=== PATIENT | male | born 1975 | race Caucasian/White ===

== ENCOUNTER 2021-04-29 09:30 | Outpatient (CLI) | payer BC, SELFPAY ==
[2021-04-29 10:26] LABS: Alanine Aminotransferase 49 U/L (16-63); Albumin Level 4.1 g/dL (3.4-5.0); Alkaline Phosphatase 74 U/L (46-116); Anion Gap 9 mmol/L (8-16); Aspartate Amino Transferase 24 U/L (15-37); Bilirubin,Total 0.8 mg/dL (0.00-1.00); Blood Urea Nitrogen 21 mg/dL (7-18); Calcium 9.1 mg/dL (8.5-10.1); Carbon Dioxide 29 mmol/L (21-32); Chloride 101 mmol/L (98-108); Cholesterol 170 mg/dL (0-200); Creatine Kinase 302 U/L (39-308); Estimated Glomerular Filt Rate > 60; Glucose 97 mg/dL (70-99); HDL Direct 41 mg/dL (40-60); LDL Cholesterol Calculated 104 mg/dL (<130); Osmolality Calculated 291 mOsm/kg (285-295); Potassium 4.1 mmol/L (3.5-5.1); Sodium 139 mmol/L (136-145); Total Protein 7.5 g/dL (6.4-8.2); Triglycerides 125 mg/dL (0-150)
[2021-05-06 03:53] LABS: Aldolase 5.4 U/L (<=8.1)
== END 2021-04-29 09:31 | disposition home or self-care (01) ==
LOC: CHSLAB 09:34
PROVIDERS: PCP Internal Medicine; Visit Provider Internal Medicine
DX: K76.0 Fatty (change of) liver, not elsewhere classified (principal); M60.9 Myositis, unspecified; E78.2 Mixed hyperlipidemia; I10 Essential (primary) hypertension
CPT/HCPCS: 36415; 80053; 80061; 82085; 82550

== ENCOUNTER 2021-08-12 07:10 | Outpatient (CLI) | payer BC, SELFPAY ==
--- NOTE | ~2021-08-12 | MR_ITS ---
EXAMINATION: MR lower leg LT wo con DATE: 08/12/2021 08:28 INDICATION: Left calf also tear presenting with left calf pain 10 days post running injury. TECHNIQUE: Magnetic resonance imaging (MRI) of the lower leg was performed without intravenous contra st. Sequences included axial, sagittal and coronal T1-weighted FSE and fluid sensitive FSE STIR. The contralateral right lower leg is included on the lateral images. COMPARISON: Left knee MRI dated 11/12/2015 FINDINGS: Bone alignment is normal. Bone marrow signal is normal with no reactive edema, fracture or pathologic marrow replacing process. No left knee or ankle joint effusions. Evaluation of the cartilage, menisc i and stabilizing ligaments at the knee as well as the cartilage at the right ankle is limited by the large field of view of imaging on the sagittal coronal images with the knee and ankle joints both lo cated at the margins of the field of imaging. There is a partial tear of the extending across midport ion of the proximal aspect of the Achilles tendon centered approximately 12 cm proximal to the tibiot alar joint line with approximately 2.5 cm separation of the tear margins. There is a sagittally orien zee split tear as well as a thin plane of fluid extending medially and laterally along the deep pablo n of the intramuscular portion of the tendon extending 20 cm proximally. The portion of the tendon wh ich is torn and retracted distally contributes to approximately half of the medial head of the gastro cnemius muscle belly. The components of the Achilles tendon arising from the lateral head of the jessica rocnemius muscle and the soleus muscle remain intact. IMPRESSION: 1. Moderate grade strain with partial tear of the distal tendon and myotendinous junction of the medi al head of the gastrocnemius muscle and extends 20 cm proximal to distal and involves approximately o ne half of the tendon contribution of the medial head of the gastrocnemius. Reviewed, dictated and finalized at location A. IMPRESSION: 1. Moderate grade strain with partial tear of the distal tendon and myotendinou s junction of the medial head of the gastrocnemius muscle and extends 20 cm pro ximal to distal and involves approximately one half of the tendon contribution of the medial head of the gastrocnemius.
== END 2021-08-12 07:11 | disposition home or self-care (01) ==
LOC: CHSIMG 07:11
PROVIDERS: PCP Internal Medicine; Visit Provider Internal Medicine
DX: S86.812A Strain of other muscle(s) and tendon(s) at lower leg level, left leg, initial encounter (principal)
CPT/HCPCS: 73718

== ENCOUNTER 2022-01-01 06:56 | Outpatient (CLI) | payer BC, SELFPAY ==
--- NOTE | ~2022-01-01 | CT_ITS ---
EXAMINATION: CT abdomen pelvis w con DATE: 01/01/2022 07:41 INDICATION: Low anterior pelvic pain radiating to testicles TECHNIQUE: Computed tomography (CT) of the abdomen and pelvis was performed with 100 cc Omnipaque 350 intravenous contrast. Automated exposure control and iterative reconstruction technique were employe d. Exam dose: 618.19 mGy-cm total exam DLP. COMPARISON: None. FINDINGS: 3 mm nodule in the lateral left lung base, left lower lobe, likely a small calcified pulmon dorothy granuloma but too small to definitively characterize. The lung bases are clear of infiltrate or consolidation. Normal heart size. No pericardial or pleural effusion. The liver, gallbladder, bile ducts, pancreas, pancreatic duct, spleen, adrenal glands and kidneys are unremarkable. Normal caliber of the abdominal aorta. No intraperitoneal or retroperitoneal or pelvic mass lesion or adenopathy or ascites. The urinary bladder is unremarkable. Prostate calcifications. Small bilateral fat-containing inguinal hernias, larger on the right. Moderately severe degenerative disc disease and mild retrolisthesis at L5-S1. Prominent degenerative change at the facet joints particularly at L4-5 and L5-S1. Additional degenerative changes of lumbar and lower thoracic spine. No suspicious osteolytic or osteoblastic lesions. IMPRESSION: Small bilateral fat-containing inguinal hernias, larger on right Moderately severe degenerative disc disease and mild retrolisthesis at L5-S1 Prominent degenerative change at the L4-5 and L5-S1 apophyseal joints Reviewed, dictated and finalized at Location A. Reviewed, dictated and finalized at location B. K SAW OPERATOR
--- NOTE | ~2022-01-01 | XR_ITS ---
XR lumbar spine 2-3V DATE: 01/01/2022 10:40 INDICATION: Chronic low back pain TECHNIQUE: AP, lateral, coned lateral lumbosacral views COMPARISON: None FINDINGS: The lumbar vertebrae are normally aligned. No fracture or bone destruction. The lumbar pedi cles are intact. There is degenerative change at the apophyseal joints particularly at L4-5 and L5-S1 with associated grade 1 anterolisthesis at L4-5. There is mild loss of interspace height at L1-2 and L4-5. Moderately prominent degenerative disease at L5-S1. Possible primary lumbar spinal stenosis is suggested. The sacroiliac joints are intact. Bilateral intravenous contrast material excretion from 01/01/2022 CT abdomen and pelvis examination by the kidneys, without hydronephrosis. IMPRESSION: Multilevel degenerative disc disease, most prominent at L5-S1 Degenerative change at the apophyseal joints with associated grade 1 anterolisthesis at L4-5 Possible primary lumbar spinal stenosis; this would be better evaluated by CT examination. Reviewed, dictated and finalized at location B. ION AGENT IMPRESSION: Multilevel degenerative disc disease, most prominent at L5-S1 Degenerative change at the apophyseal joints with associated grade 1 anterolist hesis at L4-5 Possible primary lumbar spinal stenosis; this would be better evaluated by CT e xamination.
[2022-01-01 07:18] LABS: Estimated Glomerular Filt Rate > 60
== END 2022-01-01 06:57 | disposition home or self-care (01) ==
PROVIDERS: PCP Internal Medicine; Visit Provider Internal Medicine
DX: M54.50 Low back pain, unspecified (principal); R10.9 Unspecified abdominal pain; K46.9 Unspecified abdominal hernia without obstruction or gangrene
CPT/HCPCS: 72100; 74177; Q9967

== ENCOUNTER 2022-01-04 13:52 | Outpatient (RCR) | payer BC, SELFPAY ==
--- NOTE | 2022-01-04 14:42 | PTOPEVAL ---
Thank you for referring Power Fierro to [facility].? The patient is scheduled to be seen for therapy? __2__x/week for 8 visits. Please review, sign, date and return this plan of care DEANDRE. I agree with and certify that the following plan of care is medically necessary. Referring Physician Date Admitting Provider: Attending Provider: Merry Bell MD Referring Provider: *PT Outpatient Evaluation Start: 01/04/22 13:57 Freq: Status: Active Protocol: Document 01/04/22 13:57 ALEK (Rec: 01/04/22 14:41 ALEK [id number]) Therapy Assessment Status Assessment Status Assessment Status Evaluation Evaluation Information Problem Diagnosis low back pain Onset 01/01/22 Subjective Information Pt. reports that he has had on Query Text:As Reported By Patient/ /off back pain for years. He Family reports around 2019 he was doing some housework and noticed an increase in pain. He reports that he developed testicular pain, which was a hernia. He reports that his pain in the back is located across the low back and will get occassional tingling into the left leg. He reports that pain and tingling will wake him at night frequently. He reports that his job requires him to sit most of the day. 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 He reports his goal is to reduce his low back pain. Pain Assessment Timing of Pain Assessment Timing of Pain Assessment Pre-Treatment Pain Scale Pain Scale Used Numeric (1 - 10) Self Report Pain Assessment Lower Back Reported Pain Level 1 Pain Description Aching Pain Radiation Left Leg Lowest Pain Intensity 1 Greatest Pain Intensity 7 Pain Aggravating Factors Bending,Exercise/Activity, Lifting,Weight Bearing/ Standing Pain Score Pain Score 1: Self Report Interventions Used Interventions Used By Clinicians Electrical Stimulation, Exercise,Heat Cervical and Lumbar ROM Lumbar ROM Lumbar Flexion Active Ankle Query Text:Hands to: Lumbar Extension (0-40) 10
--- NOTE | 2022-01-29 07:57 | PTOPEVAL ---
Thank you for referring Power Fierro to [facility].? The patient is scheduled to be seen for therapy? ____x/week for ___ weeks. Please review, sign, date and return this plan of care DEANDRE. I agree with and certify that the following plan of care is medically necessary. Referring Physician Date Admitting Provider: Attending Provider: Merry Bell MD Referring Provider: *PT Outpatient Evaluation Start: 01/04/22 13:57 Freq: Status: Active Protocol: Document 01/29/22 07:00 Vivian (Rec: 01/29/22 07:56 [facility] [id number]) Therapy Assessment Status Assessment Status Assessment Status Discharge Evaluation Information Problem Diagnosis low back pain Onset 01/01/22 Additional Evaluation Detail oswestry = 12% functionally declined Subjective Information patient reports he feels good Query Text:As Reported By Patient/ this date. he reports no Family pain in the lower back. he reports he has been back in the gym doing aerobics and other workouts. he reports he diid pull his hamstring a bit on the L side last night at the gym. Pain Assessment Timing of Pain Assessment Timing of Pain Assessment Assessment Self Report Self Report Pain Level 0 Pain Score Pain Score 0: Self Report Cervical and Lumbar ROM Lumbar ROM Lumbar Flexion Active Ankle Query Text:Hands to: Lumbar Extension (0-40) 20 Query Text:Active in Degrees Lumbar Lateral Flexion Right (0-40) 30 Query Text:Active in Degrees Lumbar Lateral Flexion Left (0-40) 30 Query Text:Active in Degrees Lower Extremity Muscle Strength Testing General Lower Extremity Strength Gross Lower Extremity Strength -bilateral hip flexion 5/5 -bilateral hip extension 5/5 -bilateral hip abduction 5/5 -bilateral knee flexion 5/5 -bilateral knee extension 5/5 -bilateral ankle dorsiflexion 5/5 Muscle Length Testing Muscle Length Testing Left Hamstring Length 20 Query Text:(90 - 90 Position) Right Hamstring Length 25 Query Text:(90 - 90 Position) Gait Assessment Gait Pattern Assessment Gait Pattern No Deviations/Normal General Exercise General Exercises Exercise Description Ther ex Query Text:Record Sets, Reps, -passive stretching of the HS Resistance, and Position x 2.5 minutes bilateral
== END 2022-01-29 09:46 | disposition home or self-care (01) ==
LOC: CHSPT 13:52
PROVIDERS: PCP Internal Medicine; Visit Provider Internal Medicine
DX: M54.50 Low back pain, unspecified (principal)
CPT/HCPCS: 97012; 97014; 97110; 97112; 97161; G0283

== ENCOUNTER 2022-03-04 08:36 | Outpatient (CLI) | payer BC, SELFPAY ==
--- NOTE | 2022-03-04 08:43 | ECG_ITS ---
Measurements Intervals [place] Rate: 71 P: 37 VA: 141 QRS: 26 QRSD: 89 T: -31 QT: 379 QTc: 412 Interpretive Statements SINUS RHYTHM BORDERLINE ECG NONSPECIFIC T-WAVE ABNORMALITY NO PREVIOUS ECG AVAILABLE FOR COMPARISON Electronically Signed On 03-04-2022 16:49:36 CDT by Wenceslao Gomes M.D.
== END 2022-03-04 08:37 | disposition home or self-care (01) ==
LOC: ANHSURGERY 08:40
PROVIDERS: PCP Internal Medicine; Visit Provider Surgery
DX: Z01.818 Encounter for other preprocedural examination (principal); K40.20 Bilateral inguinal hernia, without obstruction or gangrene, not specified as recurrent; I10 Essential (primary) hypertension
CPT/HCPCS: 36415; 86850; 86900; 86901; 93005

== ENCOUNTER 2022-03-09 00:22 | Day surgery (SDC) | payer BC, SELFPAY ==
[2022-03-03 13:13] VITALS: BMI 29.9
--- NOTE | 2022-03-03 13:20 | PC.NURSE ---
Report to the Outpatient Waiting Room, entrance under the green pavilion located off [facility], at time ___729____ on date 03/09/22 . OR Time: . - You and your visitor will be asked a series of questions to screen for COVID 19 for your protection. - A mask is required within the hospital. Preoperative COVID Testing Requirements: No COVID Test needed if: (proof is required; if not received patient will have Rapid Test prior to entry) - Patient has received COVID Vaccine at least 14 days prior to procedure date or - Patient has positive COVID test result within last 90 days of surgery date. COVID Test needed if above criteria is not met If not COVID vaccinated a COVID test must be conducted within 72 hours of surgery and patient is asked to isolate self from time of testing until procedure. You will go to the [facility] for your COVID testing. The [facility] site is located at the corner of [address] [facility]. You will only be called if COVID results are positive and your surgeon may reschedule your elective surgery date. Patients may have clear liquids (water, carbonated beverages, clear teas, apple juice) until 3 hours prior to surgery with a maximum of 20 ounces. - No food from midnight until time of surgery - Infants may have breast milk until 4 hours before surgery, infant formula 6 hours prior to surgery. - Children will be allowed to drink immediately following surgery. If applicable, please bring a bottle or sippy cup to assist with drinking. Juice, water, soda, and popsicles are readily available. For infants on formula, please bring formula the day of surgery. Pacifiers are allowed. Take the following medications with a SIP of water the morning of surgery: __AMLODIPNE Medications to discontinue per physician NONE Date to take last dose N/A Please no make-up, nail japanese, hairspray, perfume, deodorant, or body powder the day of surgery. No jewelry (including any body piercings) or valuables the day of surgery, leave them at home. Please take a shower or bath the night before, or the morning of, surgery with an antibacterial soap. Wear comfortable, loose fitting clothing. Children are encouraged to wear pajamas. - Jewelry must be removed prior to entering the operating room. Rings and piercings that are not removed may be cut off. - The hospital will not accept responsibility for valuables. - Please leave all valuables, including medications, at home the day of surgery. If you are going home after surgery, a licensed cdl flatbed truck driver must drive you home. - NO public transportation without another adult. - We recommend that an adult stay with you for 24 hours following discharge. - We also recommend that you do not drive, make important decision, drink alcoholic beverages, or take any drugs that were not prescribed by your health care provider for at least 24 hours after your discharge time. For Pediatric surgeries, we recommend two adults accompany the child home (only one inside the building at this time). One visitor will be allowed to accompany the patient into the hospital. Patients visitor will be instructed to remain with patient at all times or leave the building. We will allow the visitor to come back to the postoperative area when patient is ready. Follow any additional instructions given to you from your surgeon. Telephone instructions given to PATIENT___and asked if any additional questions and then verbalized understanding. Patient advised to call surgeon office or pre surgery nurse liaison [phone] if any additional questions.
[2022-03-09] VITALS (9 sets, daily range): BP systolic 97–130; BP diastolic 60–86; PULSE 68–81; RESP 12–20; TEMP 36.7; O2SAT 92–100
--- NOTE | 2022-03-09 07:32 | WPDANESEPPF ---
Anes - Initial Pre Proc Eval Procedure: Operation Date: 03/09/22 09:30 Proposed Procedures p Laparoscopic Bilateral Inguinal Hernia Repair with Mesh Davinci Assisted - Power Funk DO Date/Time: 03/09/22 07:32 Surgeon: Power Funk DO Pre Op Diagnosis: bilateral inguinal hernia Patient Data Age: 46 Gender: M Height: 1.83 m Weight: 100 kg Allergies Allergy/AdvReac Type Severity Reaction Status Date / Time No Known Allergies Allergy Verified 03/09/22 08:27 Home Medications Medication Instructions Recorded Confirmed Type amlodipine 10 mg tablet 10 mg PO DAILY 01/12/22 03/03/22 History Patient hx anesthesia problems: none Family hx anesthesia problems: none Results Review: All pre-operative results and documents have been reviewed as part of the pre-operative evaluation. [facility] Past Medical History Medical History High cholesterol Hypertension Surgical History Surgical History History of appendectomy Family History Family History Unknown Diabetes mellitus Hypertension Social History Social History Smoking status: Never smoker Tobacco type: pipe and cigars Alcohol intake: current Drinks per week: 2 Substance use: never Living arrangements: with family Anes - Eval Final PreProcedure Day of Procedure 03/09/22 07:32 Patient weight: overweight Heart: regular rate and rhythm Lungs: clear to auscultation and normal air movement Airway: Mallampati scale class III Neurological: alert and oriented Last oral intake: >/= 8 hours ASA classification: II Emergent: no Anesthetic plan: proceed Anesthesia type and monitoring: general ETT and standard monitoring Results Review: All pre-operative results and documents have been reviewed as part of the pre-operative evaluation. Informed Consent: The patient's anesthetic plan and its attendant risks and benefits were discussed with the patient/family/POA. Questions were solicited and answers provided to the satisfaction of the patient/family/POA.
[2022-03-09] MEDS: LACTATED RINGERS 1,000 ML 30 ML IV CONT ×2 (08:01→10:54)
[2022-03-09] MEDS: ACETAMINOPHEN 500 MG TABLET 1000 MG PO (08:01)
[2022-03-09] MEDS: KETOROLAC 15 MG/ML VIAL (*BKC) IV PUSH (08:01)
--- NOTE | 2022-03-09 08:43 | PM.IMHP ---
H&P: HPI History of Present Illness Date/Time: 03/09/22 08:43 Chief Complaint: Bilateral inguinal hernia Narrative: This is a 46-year-old man who presents with bilateral inguinal hernias. He was noticing some increasing pain in the right testicle and a CT showed evidence of bilateral inguinal hernias, right larger than left. He reports no changes since last seen in the office. Review of Systems Review of Systems: All systems reviewed & are unremarkable except as noted in HPI and below Constitutional: Constitutional: Denies chills, Denies fever(s), Denies headache(s) and Denies weight loss Eyes: Eyes: Denies change in vision ENT: Denies dizziness, Denies headache(s), Denies neck mass and Denies throat swelling Cardiovascular: Cardiovascular: Denies chest pain, Denies lightheadedness and Denies dyspnea Respiratory: Respiratory: Denies cough, Denies dyspnea and Denies wheezing Gastrointestinal: Gastrointestinal: Denies abdominal pain, Denies change in bowel habits, Denies nausea and Denies vomiting Genitourinary: Genitourinary: Denies hematuria and Denies dysuria Musculoskeletal: Musculoskeletal: Reports as per HPI Integumentary/Breasts: Skin/Breast: Reports as per HPI Neurologic: Denies dizziness and Denies headache(s) Allergic/Immunologic: Allergic/Immunologic: Denies throat swelling and Denies wheezing PMFSH Past Medical History Medical History High cholesterol Hypertension Surgical History Surgical History History of appendectomy Family History Family History Unknown Diabetes mellitus Hypertension Social History Social History Smoking status: Never smoker Tobacco type: pipe and cigars Alcohol intake: current Drinks per week: 2 Substance use: never Living arrangements: with family Meds Home Medications and Allergies Home Medications Medication Instructions Recorded Confirmed Type amlodipine 10 mg tablet 10 mg PO DAILY 01/12/22 03/09/22 History Allergies Allergy/AdvReac Type Severity Reaction Status Date / Time No Known Allergies Allergy Verified 03/09/22 08:27 Vital Signs Vital Signs - 24 hr 03/09/22 08:28 Temperature 36.7 C Pulse Rate 74 Respiratory Rate 18 Blood Pressure 130/86 Pulse Oximetry 100 Exam Const: General: no acute distress and alert Orientation/consciousness: patient oriented x3 HENMT: Head: normocephalic and atraumatic Ears: hearing grossly normal bilaterally General nose exam: Normal nares present Mouth: Yes Normal oral and palatal mucosa present Eyes: Periorbital: periorbital findings normal Sclera: sclerae normal EOM: EOMs intact bilaterally Neck: Neck: normal visual inspection, no lymphadenopathy and trachea midline Chest: Chest palpation & inspection: normal inspection of the chest Resp: Effort & Inspection: normal respiratory effort Auscultation: clear to auscultation bilaterally Cardio: Jugular venous distension: no JVD Rate: regular rate Rhythm: regular rhythm Heart sounds: S1 normal heart sound present and S2 normal heart sound present Peripheral pulses: Peripheral pulses 2+ throughout GI: Inspection: normal to inspection GI Palp: Yes Soft to palpation, No Tenderness to palpation present (GI), No Guarding due to palpation present (GI) and No Rebound tenderness present Percussion: Yes normal to percussion Auscultation: normal bowel sounds : General: Yes no CVA tenderness Scrotum: inguinal hernia bilateral Back/Spine/Pelvis: Back: no CVA tenderness Neuro: General: patient oriented x3, no focal motor deficits and CN's II-XI intact bilaterally Cognition (Neuro): normal cognition Speech: normal speech Motor exam (neuro): 5/5 motor strength present throughout Extrem: General: capillary r
--- NOTE | 2022-03-09 08:46 | WPDHPUPDATE1 ---
History and Physical Update Update Date/Time: 03/09/22 08:46 History and Physical has been reviewed, including an updated exam of the patient. There are NO changes in the patient's condition. Risks, benefits, and alternatives have been discussed and questions answered. Patient agrees to proceed with procedure.
[2022-03-09] MEDS: ceFAZolin 2 GM/D5W 50 ML 2 GM/50 ML BAG IVPB (09:16)
--- NOTE | 2022-03-09 10:48 | W.PM.PROC2 ---
Procedure Note - Detailed Date of Procedure 03/09/22 Pre-op Diagnosis bilateral inguinal hernia Post-op Diagnosis Same (Right indirect inguinal hernia, left direct inguinal hernia) Procedure Performed Laparoscopic [] inguinal hernia repair with mesh, da Lupe assisted Surgeon Power Funk, DO Anesthesia General and Local (0.5% bupivacaine with epinephrine) Indications This is a 46-year-old man who presented with groin pain over the past 2 months. The pain was radiating down to his right testicle. A CT of his abdomen and pelvis was done in December and this showed evidence of bilateral fat containing inguinal hernias. Discussions were made with the patient about treatment options and decision was made to proceed with robotic assisted laparoscopic bilateral inguinal hernia repair with mesh. Findings Laparoscopic bilateral inguinal hernia repair was performed. Patient was found have a small indirect right inguinal hernia and a small direct left inguinal hernia. The patient also had a lymph node noted on the left side right near the inguinal canal. This lymph node was excised and sent to the lab for pathology. A robotic assisted transabdominal preperitoneal approach was utilized. Large Bard 3DMax mid mesh was placed on each side overlying the entire myopectineal orifice. No other abnormalities were noted. Description of Procedure Procedure as well as risks, benefits, and alternatives were discussed with the patient. Written consent was obtained and placed in chart prior to procedure. Patient was brought back to surgical suite. He was placed supine on operating table. Time-out was done to confirm patient and procedure. He was then intubated by Anesthesia Department. His abdomen was prepped and draped in sterile fashion using chlorhexidine prep. 0.5% bupivacaine with epinephrine was infiltrated at each location for incision. An 8 mm incision was made in the left lateral abdomen, and a 5 mm Optiview trocar was advanced through the abdominal layers under direct visualization. Once inside the abdominal cavity, carbon dioxide insufflation was used to create a pneumoperitoneum. A camera was inserted and the abdominal cavity was inspected. The patient was placed in slight Trendelenburg position. An 8 millimeter incision was made on the right lateral abdomen and an 8 millimeter trocar was inserted under direct visualization. Another 8 millimeter incision was made just superior to the umbilicus and an 8 millimeter trocar was inserted under direct visualization. The 5 mm port was then removed and this was replaced with another 8 mm robotic port. The robotic arms were brought up to the patient's bedside and secured to the ports. The camera and instruments were inserted. I then moved over to the robotic console and took control of the camera and instruments. After careful inspection of the abdominal cavity, I began scoring the peritoneum along the right lower quadrant using scissors with electrocautery. The preperitoneal plane was entered and this was carefully dissected caudally along the inferior epigastric vessels. Careful dissection with scissors with electrocautery and blunt dissection was used to continue this dissection. I dissected far enough laterally to allow for mesh placement, and also dissected medially to identify the pubic arch and Salvador's ligament. The hernia sac was identified and carefully dissected posteriorly. The cord contents were also identified and the peritoneum was carefully dissected far enough posteriorly to allow for mesh placement. Once an adequate pocket was created, I then placed the mesh within the preperitoneal pocket and carefully unfolded it. The mesh was centered on the hernia defect with adequate overlap circumferentially. The inferior edge of the mesh was inspected to ensure that it was far enough away from the peritoneal edge. The mesh appeared in proper position overlying the entire myopectineal orifice. The mes
== END 2022-03-09 13:02 | disposition home or self-care (01) ==
PROVIDERS: PCP Internal Medicine; Visit Provider Surgery
PROC: 8E0Y4CZ Robotic Assisted Procedure of Lower Extremity, Percutaneous Endoscopic Approach (ICD-10-PCS; CPT 49650; principal; 2022-03-09 09:30)
DX: K40.20 Bilateral inguinal hernia, without obstruction or gangrene, not specified as recurrent (principal); I10 Essential (primary) hypertension
CPT/HCPCS: 49650; S2900; 88305; A9270; C1781; J0690; J1100; J1885; J2250; J2405; J2704; J2710; J3010; J7030; J7120

== ENCOUNTER 2022-04-07 13:10 | Emergency (ER) | payer BC, SELFPAY ==
--- NOTE | ~2022-04-07 | CT_ITS ---
EXAMINATION: CT BRAIN W/O DATE: 04/07/2022 13:55 INDICATION: Acute dizziness and palpitations. Blurred vision. TECHNIQUE: Computed tomography (CT) of the head was performed without intravenous contrast. The dose- length product was 529.67 mGy-cm. Automated exposure control and iterative reconstruction technique w ere employed. COMPARISON: No prior studies for comparison. FINDINGS: Normal brain parenchymal volume for age. Normal rincon-white differentiation. No acute intrac ranial hemorrhage, infarction, mass or mass effect. No ventriculomegaly or midline shift. Midline sagittal images demonstrate a normal corpus callosum, c raniovertebral junction and sella turcica. Basilar cisterns are patent. Paranasal sinuses and mastoids are pneumatized. No depressed skull fractures. IMPRESSION: 1. No acute intracranial abnormality. Reviewed, dictated and finalized at location A.
--- NOTE | ~2022-04-07 | XR_ITS ---
EXAMINATION: XR chest 1V portable 04/07/2022 13:56 INDICATION: Acute are palpitations. Shortness of breath. PROCEDURE: AP portable chest COMPARISON: No prior studies for comparison. FINDINGS: The lungs are clear. The cardiomediastinal silhouette is within normal limits. There are no pleural effusions. There is no pneumothorax suspected. IMPRESSION: 1: NO ACUTE CARDIOPULMONARY DISEASE. Reviewed, dictated and finalized at location A.
[2022-04-07 13:15] VITALS: BP 149/88; PULSE 95; RESP 18; TEMP 36.3; O2SAT 95
--- NOTE | 2022-04-07 13:33 | ECG_ITS ---
Measurements Intervals [place] Rate: 85 P: 60 NM: 124 QRS: 59 QRSD: 86 T: 13 QT: 353 QTc: 420 Interpretive Statements SINUS RHYTHM BORDERLINE ST-T WAVE ABNORMALITY- INF/LAT LEADS BORDERLINE ECG Electronically Signed On 04-07-2022 13:49:54 CDT by Chevy Schmidt D.O.
[2022-04-07 13:45] VITALS: BP 135/81; PULSE 88; RESP 16; O2SAT 98
[2022-04-07 13:50] LABS: Add Urine Microscopic? NO; Appearance Urine Clear (Clear); Bilirubin Urine Negative (Negative); Blood Urine Negative (Negative); Color Urine Light Yellow (Yellow); Glucose Urine UA Negative (Negative); Ketones Urine Negative (Negative); Leukocyte Esterase Ur Negative (Negative); Nitrate Urine Negative (Negative); Protein Urine Negative (Negative); Specific Grav Ur 1.015 (1.010-1.020); Urobilinogen Urine 0.2 mg/dL (0.2-1.0); pH Urine 7.5 (5.0-8.0)
[2022-04-07 13:58] LABS: Amphetamine Screen Urine Negative (Negative); Barbiturate Screen Urine Negative (Negative); Benzodiazepines Screen Urine Negative (Negative); Cannabinoid Screen Urine Negative (Negative); Cocaine Screen Urine Negative (Negative); Methadone Screen Urine Negative (Negative); Opiate Screen Urine Negative (Negative); Phencyclidine Screen Urine Negative (Negative)
[2022-04-07] MEDS: SODIUM CHLORIDE 0.9% IV 1,000 ML 999 ML IV CONT (13:58)
[2022-04-07] MEDS: ACETAMINOPHEN 325 MG TABLET 650 MG PO (14:00)
[2022-04-07 14:02] LABS: Basophils Absolute Auto 0.05 K/mm3 (0.00-0.10); Basophils Percent Auto 0.6 % (0.0-1.0); Eosinophils Absolute Auto 0.21 K/mm3 (0.02-0.50); Eosinophils Percent Auto 2.4 % (1.0-6.0); Hematocrit 41.9 % (40.0-54.0); Hemoglobin 14.3 g/dL (14.0-18.0); Immature Granulocyte Absolute 0.01 K/mm3 (0.00-0.00); Immature Granulocyte Percent A 0.1 % (0.0-0.0); Lymphocytes Absolute Auto 2.88 K/mm3 (1.10-4.50); Lymphocytes Percent Auto 32.8 % (18.0-42.0); Mean Corpuscular HGB Conc 34.1 g/dL (32.0-36.0); Mean Corpuscular Hemoglobin 29.7 pg (27.0-31.0); Mean Corpuscular Volume 87.1 fL (78.0-102.0); Mean Platelet Volume 9.7 fl (8.7-11.0); Monocytes Absolute Auto 0.65 K/mm3 (0.10-0.90); Monocytes Percent Auto 7.4 % (2.0-11.0); Neutrophils Percent Auto 56.7 % (50.0-70.0); Platelet Count Result 296 K/mm3 (150-420); Red Blood Count 4.81 M/mm3 (4.70-6.10); Red Cell Distribution Width 12.6 % (11.6-14.4); White Blood Count 8.8 K/mm3 (4.8-10.8)
[2022-04-07 14:15] VITALS: BP 129/88; PULSE 85; RESP 14; O2SAT 99
[2022-04-07 14:25] LABS: Alanine Aminotransferase 65 U/L (16-63); Alkaline Phosphatase 87 U/L (46-116); Anion Gap 7 mmol/L (8-16); Aspartate Amino Transferase 27 U/L (15-37); Bilirubin,Total 0.5 mg/dL (0.00-1.00); Blood Urea Nitrogen 18 mg/dL (7-18); Carbon Dioxide 29 mmol/L (21-32); Chloride 100 mmol/L (98-108); Estimated CRCL calculation 88 ml/min; Estimated Glomerular Filt Rate > 60; Ethanol < 3 mg/dL (0-6); Glucose 103 mg/dL (70-99); Osmolality Calculated 283 mOsm/kg (285-295); Potassium 3.8 mmol/L (3.5-5.1); Sodium 136 mmol/L (136-145); Total Protein 7.8 g/dL (6.4-8.2); Troponin I 10.5 ng/L (0.00-60.4)
[2022-04-07 14:49] VITALS: BP 143/91; PULSE 80; RESP 16; TEMP 36.6; O2SAT 100
--- NOTE | 2022-04-07 14:50 | ED.DIZZY ---
HPI - Dizziness General Chief Complaint: Dizziness Stated Complaint: palpitations SObB during, dizzy, weak Time Seen by Provider: 04/07/22 13:13 Source: patient and RN notes reviewed Mode of arrival: ambulatory Limitations: no limitations History of Present Illness MD elicited complaint: dizziness and lightheadedness Pertinent past history: inner ear problems Onset (ago): day(s) (1) Timing: gradual onset Severity: moderate Description: lightheadedness History of similar symptoms: Yes Exacerbating factors: nothing Relieving factors: nothing Associated symptoms: nausea, weakness and ear fullness Stroke scale total: 2 Related Data Home Medications Medication Instructions Recorded Confirmed amlodipine 10 mg tablet 10 mg PO DAILY 01/12/22 04/07/22 Allergies Allergy/AdvReac Type Severity Reaction Status Date / Time No Known Allergies Allergy Verified 04/07/22 13:22 Review of Systems Review of Systems: All systems reviewed & are unremarkable except as noted in HPI and below Constitutional: Constitutional: Reports no additional constitutional complaints Eyes: Eyes: Reports no additional eye complaints ENT: Reports system reviewed and no additional complaints, except as documented Cardiovascular: Cardiovascular: Reports no additional cardiovascular complaints Respiratory: Respiratory: Reports no additional respiratory complaints Gastrointestinal: Gastrointestinal: Reports no additional gastrointestinal complaints Musculoskeletal: Musculoskeletal: Reports no additional musculoskeletal complaints Integumentary/Breasts: Skin/Breast: Reports system reviewed and no additional complaints, except as docu Neurologic: Reports system reviewed and no additional complaints, except as documented Psychiatric: Psychiatric: Reports no additional psychiatric complaints Endocrine: Endocrine: Reports no additional endocrine complaints Hematologic/Lymphatic: Hematologic/Lymphatic: Reports no additional hematologic/lymphatic complaints Allergic/Immunologic: Allergic/Immunologic: Reports no additional allergic/immunologic complaints [facility] Past Medical History Medical History Dizziness, nonspecific High cholesterol Hypertension Surgical History Surgical History History of appendectomy History of inguinal hernia repair 03/09/22 Laparoscopic Bilateral inguinal hernia repair with mesh, da Lupe assisted Family History Family History Unknown Diabetes mellitus Hypertension Social History Social History Smoking status: Never smoker Tobacco type: pipe and cigars Alcohol intake: current Drinks per week: 2 Substance use: never Exam Const: General: healthy appearing and no acute distress Nutritional Appearance: well nourished Orientation/consciousness: patient oriented x3 Limitations: no limitations HENMT: Head: normal to inspection Ears: external ears normal, TM's normal bilaterally and EAC's normal General nose exam: Normal external nose present and Normal nares present Face and sinus: normal facial exam and sinuses nontender Mouth: Yes Normal oral and palatal mucosa present and Yes moist mucous membranes Teeth and gingiva: dentition normal Throat: posterior oropharynx normal Eyes: Conjunctivae: conjunctivae normal Pupils: Equal, round and reactive pupils present EOM: EOMs intact bilaterally Neck: Neck: normal visual inspection, no lymphadenopathy and no meningeal signs Chest: Chest palpation & inspection: normal inspection of the chest Resp: Effort & Inspection: normal respiratory effort Auscultation: clear to auscultation bilaterally Cardio: Rate: regular rate Rhythm: regular rhythm GI: GI Palp: Yes Soft to palpation and No Tenderness to palpation present (GI) Auscultat
[2022-04-07 15:09] VITALS: BP 133/99; PULSE 84; RESP 202; O2SAT 98
== END 2022-04-07 15:10 | disposition home or self-care (01) ==
PROVIDERS: Emergency Provider Emergency Medicine; PCP Internal Medicine
DX: R42 Dizziness and giddiness (principal)
CPT/HCPCS: 70450; 71045; 80053; 80307; 81003; 84484; 85025; 93005; 96360; 99284; A9270; J7030

== ENCOUNTER 2022-04-16 09:26 | Outpatient (CLI) | payer BC, SELFPAY ==
--- NOTE | 2022-05-19 12:11 | WPDHOLTEREM ---
Holter/Event Monitor Holter/Event Monitor Date of procedure: 05/20/22 Holter/Event Procedure: Event Monitor Indications: Palpitations Conclusion: 1. 10 days event monitor between 04/16/22-05/18/22. There are 26 available transmissions for analysis. 2. Predominant rhythm is sinus rhythm. HR range 50-161 bpm; average HR 81 bpm. HR at 161 bpm was on 04/28/22 at 06:30. 3. There are occasional premature supraventricular complexes with total burden of 1%. No supraventricular tachycardia. 4. There are no premature ventricular complexes. One episode of ventricular tachycardia at 123 bpm lasting 14 beats on 04/20/22 at 23:37. 5. No significant pauses greater than 2 seconds. 6. Patient reports 1 episode of symptom other than listed which demonstrate sinus rhythm at 71 bpm.
== END 2022-04-16 09:27 | disposition home or self-care (01) ==
LOC: CHSCARD 09:31
PROVIDERS: PCP Internal Medicine; Visit Provider Internal Medicine
DX: R00.2 Palpitations (principal)
CPT/HCPCS: 93270

== ENCOUNTER 2024-06-02 07:27 | Outpatient (CLI) | payer BC, SELFPAY ==
[2024-06-02 08:06] LABS: Hematocrit 45.1 % (40.0-54.0); Hemoglobin 15.4 g/dL (14.0-18.0); Mean Corpuscular HGB Conc 34.1 g/dL (32-36); Mean Corpuscular Hemoglobin 29.3 pg (27.0-31.0); Mean Corpuscular Volume 85.9 fL (78.0-102.0); Mean Platelet Volume 10.2 fl (8.7-11.0); Platelet Count Result 252 K/mm3 (150-420); Red Blood Count 5.25 M/mm3 (4.70-6.10); Red Cell Distribution Width 12.3 % (11.6-14.4); White Blood Count 6.4 K/mm3 (4.8-10.8)
[2024-06-02 08:13] LABS: Alanine Aminotransferase 30 U/L (16-63); Alkaline Phosphatase 89 U/L (46-116); Anion Gap 8 mmol/L (4-12); Aspartate Amino Transferase 20 U/L (15-37); Bilirubin,Total 0.6 mg/dL (0.00-1.00); Blood Urea Nitrogen 15 mg/dL (7-18); Calcium 8.9 mg/dL (8.5-10.1); Carbon Dioxide 27 mmol/L (21-32); Chloride 100 mmol/L (98-108); Cholesterol 176 mg/dL (0-200); Creatine Kinase 188 U/L (39-308); Estimated Glomerular Filt Rate > 60; Glucose 108 mg/dL (70-99); HDL Direct 44 mg/dL (40-60); LDL Cholesterol Calculated 87 mg/dL (<130); Osmolality Calculated 281 mOsm/kg (285-295); Potassium 3.7 mmol/L (3.5-5.1); Sodium 135 mmol/L (136-145); Total Protein 7.6 g/dL (6.4-8.2); Triglycerides 226 mg/dL (0-150)
[2024-06-02 08:20] LABS: Appearance Urine Clear (Clear); Bilirubin Urine Negative (Negative); Blood Urine Negative (Negative); Color Urine Light Yellow (Yellow); Glucose Urine UA Negative (Negative); Ketones Urine Negative (Negative); Leukocyte Esterase Ur Negative (Negative); Nitrate Urine Negative (Negative); Protein Urine Negative (Negative); Specific Grav Ur <= 1.005 (1.010-1.020); Urobilinogen Urine 0.2 mg/dL (0.2-1.0)
[2024-06-02 08:24] LABS: Add Urine Microscopic? NO
[2024-06-02 08:32] LABS: Hemoglobin A1C 5.6 % (<5.7)
[2024-06-04 12:44] LABS: Aldolase 3.9 U/L (< OR = 8.1)
== END 2024-06-02 07:28 | disposition home or self-care (01) ==
LOC: CHSLAB 07:29
PROVIDERS: PCP Internal Medicine; Visit Provider Internal Medicine
DX: E78.2 Mixed hyperlipidemia (principal); I10 Essential (primary) hypertension; M60.9 Myositis, unspecified; R70.1 Abnormal plasma viscosity; K76.0 Fatty (change of) liver, not elsewhere classified
CPT/HCPCS: 36415; 80053; 80061; 81003; 82085; 82550; 83036; 85027

== ENCOUNTER 2025-03-28 16:21 | Outpatient (CLI) | payer BC, SELFPAY ==
--- NOTE | ~2025-03-28 | XR_ITS ---
Right foot Technique: AP, oblique, and lateral views were obtained. Clinical History: Swelling of great toe Findings: No acute fracture or dislocation is seen. Osseous alignment is anatomic. Joint spaces are p reserved without erosive or degenerative change. Soft tissues are unremarkable. Impression: Unremarkable right foot radiographs. Reviewed, dictated and finalized at [facility]. Impression: Unremarkable right foot radiographs.
--- OUTSIDE RECORDS SUMMARY | 2025-03-28 16:24 | XMS_ITS | Clinical Summary ---
Author Organization [facility] Address [address] [place] [address] Care Team Providers Care Bundle Collector Name Role Phone Merry Bell MD Primary Care Provider [phone] Allergies No known active allergies Medications aspirin EC 81 MG tablet Take 81 mg by mouth daily. Active amLODIPine 10 MG tablet Take 10 mg by mouth daily. Active metoprolol succinate ER 25 MG 24 hr tablet Take 25 mg by mouth daily. Active B Complex-C Tab tablet Take 1 tablet by mouth daily. Active [place]-3 Fatty Acids (OMEGA-3 FISH OIL OR) Take 2,400 mg by mouth daily. Active Probiotic Product (PROBIOTIC ADVANCED) Cap Take 1 capsule by mouth daily. Active LYSINE-THIAMINE -NIACINAMIDE OR Take 1 tablet by mouth daily. Active Coenzyme Q10 (CO Q10) 200 MG Cap Take 1 tablet by mouth daily. Active Turmeric (QC TUMERIC COMPLEX) 500 MG Cap Take 1 tablet by mouth nightly. Active Specialty Vitamins Products (COLLAGEN ULTRA OR) Take 1,000 mg by mouth nightly. Active levOCARNitine (L-CARNITINE OR) Take 1 tablet by mouth daily. Active Multiple Vitamin (MULTIVITAMIN ADULT OR) Take 1 tablet by mouth daily. Active vitamin D3, cholecalciferol , 1000 UNIT Tab tablet Take 1 tablet by mouth nightly. Active calcium-magnesi um-zinc 333-133-5 MG Tab Take 1 tablet by mouth daily. 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 on file Not on file Not on file Last Filed Vital Signs Vital Sign Reading Time Taken Comments Blood Pressure 124/64 06/04/2022 10:28 AM CDT Pulse 61 06/04/2022 10:28 AM CDT Temperature - - Respiratory Rate 18 05/14/2022 1:47 PM CDT Oxygen Saturation 96% 06/04/2022 10:28 AM CDT Inhaled Oxygen Concentration - - Weight 99.8 kg (220 lb) 05/14/2022 1:47 PM CDT Height 182.9 cm (6') 05/14/2022 1:47 PM CDT Body Mass Index 29.84 05/14/2022 1:47 PM CDT Plan of Treatment Health Maintenance Due Date Last Done Comments Colorectal Cancer Screening Colonoscopy (10 Years) 1974 Annual Physical 1977 Hepatitis C 1992 DTaP, Tdap and Td Vaccines ( 1 - Tdap) 1993 Hepatitis B Vaccines (1 of 3 - 19+ 3-dose series) 1993 COVID-19 Vaccine ( - 2023-2 5 season) 2024 Pneumococcal Vaccine: 50+ Ye ars (1 of 1 - PCV) 2024 Zoster Vaccines (1 of 2) 2024 Meningococcal B Vaccine Aged Out No l onger eligible based on patient's age to complete this topic Meningococcal Vaccine Aged Out No jose miguel rodrigo eligible based on patient's age to complete this topic RSV Immunizations Under 20 Months Aged Out No longer eligible based on patient's age to complete this topic Insurance [facility] Care Teams Bundle Collector Relationship Specialty Start Date End Date Merry Bell MD PCP - General INTERNAL MEDICINE 05/14/22
[2025-03-28 18:21] LABS: Anion Gap 7 mmol/L (4-12); Blood Urea Nitrogen 17 mg/dL (9-20); Calcium 9.2 mg/dL (8.4-10.2); Carbon Dioxide 27 mmol/L (22-30); Chloride 105 mmol/L (98-107); Estimated Glomerular Filt Rate > 60; Glucose 98 mg/dL (65-110); Osmolality Calculated 289 mOsm/kg (285-295); Potassium 4.4 mmol/L (3.4-5.0); Sodium 139 mmol/L (137-145); Uric Acid 6.1 mg/dL (3.5-8.5)
== END 2025-03-28 16:22 | disposition home or self-care (01) ==
LOC: CHSLAB 16:22
PROVIDERS: PCP Internal Medicine; Visit Provider Nurse Practitioner Family
DX: M79.89 Other specified soft tissue disorders (principal)
CPT/HCPCS: 36415; 73630; 80048; 84550

== ENCOUNTER 2025-07-24 16:59 | Outpatient (CLI) | payer BC, SELFPAY ==
--- NOTE | ~2025-07-24 | XR_ITS ---
EXAMINATION: XR forearm LT 2V, 07/24/2025 17:15 CDT HISTORY: unknown injury to elbow/forearm area COMPARISON: No comparisons available. Findings: No acute fracture or malalignment. No significant degenerative changes. Soft tissues unremarkable. Impression: No acute fracture or malalignment. Reviewed, dictated and finalized at location A. Impression: No acute fracture or malalignment.
--- NOTE | ~2025-07-24 | XR_ITS ---
EXAMINATION: XR wrist LT min 3V, 07/24/2025 17:11 CDT HISTORY: unknown injury to elbow/forearm area COMPARISON: No comparisons available. Findings: No acute fracture or malalignment. No significant degenerative changes. Soft tissues unremarkable. Impression: No acute fracture or malalignment. Reviewed, dictated and finalized at location A. Impression: No acute fracture or malalignment.
--- NOTE | ~2025-07-24 | XR_ITS ---
EXAMINATION: XR elbow LT min 3V, 07/24/2025 17:15 CDT HISTORY: unknown injury to elbow/forearm area COMPARISON: No comparisons available. Findings: No acute fracture or malalignment. No significant degenerative changes. Soft tissues unremarkable. Impression: No acute fracture or malalignment. Reviewed, dictated and finalized at location A. Impression: No acute fracture or malalignment.
== END 2025-07-24 17:00 | disposition home or self-care (01) ==
LOC: CHSIMG 17:01
PROVIDERS: PCP Internal Medicine; Visit Provider Internal Medicine
DX: S59.912A Unspecified injury of left forearm, initial encounter (principal); M79.89 Other specified soft tissue disorders
CPT/HCPCS: 73080; 73090; 73110

== ENCOUNTER 2025-07-30 16:19 | Outpatient (CLI) | payer BC, SELFPAY ==
--- NOTE | ~2025-07-30 | CT_ITS ---
EXAM/PROCEDURE: CT UE LT w con 07/30/2025 16:52 CDT HISTORY: left forearm swelling COMPARISON: 07/24/25 TECHNIQUE: Axial CT of the left upper extremity was obtained. Coronal and sagittal reformats were obtained from axial data set. FINDINGS/ IMPRESSION: 6 x 4.1 x 2.5 cm complex collection in the soft tissues over olecranon. Extensive surrounding cellulitis. Olecranon bursitis can also have this appearance. No joint effusion. No acute osseous abnormality. Reviewed, dictated and finalized at location N.
--- NOTE | ~2025-07-30 | US_ITS ---
EXAMINATION: US venous doppler YEN GARCIA, 07/30/2025 16:30 CDT HISTORY: Left arm swelling Comparison: None Technique: Multiple rincon scale and color Doppler sonographic images were obtained of the internal jugular, subclavian, axillary, brachial, basilar, radial and ulnar veins. Findings: Venous System:Normal flow, augmentation and compressibility. No echogenic thrombus identified. Soft tissues: Soft tissues are unremarkable. Impression: Negative for DVT. Reviewed, dictated and finalized at location A. Impression: Negative for DVT.
--- OUTSIDE RECORDS SUMMARY | 2025-07-30 16:53 | XMS_ITS | Clinical Summary ---
Author Organization [facility] Address [address] [place] [address] Care Team Providers Care Talent Acquisition Lead Name Role Phone Merry Bell MD Primary Care Provider [phone] Allergies No known active allergies Medications aspirin EC 81 MG tablet Take 81 mg by mouth daily. Active amLODIPine 10 MG tablet Take 10 mg by mouth daily. Active metoprolol succinate ER 25 MG 24 hr tablet Take 25 mg by mouth daily. Active B Complex-C Tab tablet Take 1 tablet by mouth daily. 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 on file Not [...] of 3 - 19+ 3-dose series) 1993 Pneumococcal Vaccine: 50+ Ye ars (1 of 1 - PCV) 2024 Zoster Vaccines (1 of 2) 2024 COVID-19 Vaccine (1 - 2023-2 5 season) 2025 Meningococcal B Vaccine Aged Out No l onger eligible based on patient's age to complete this topic Meningococcal Vaccine Aged Out No jose miguel rodrigo eligible based on patient's age to complete this topic RSV Immunizations Under 20 Months Aged Out No longer eligible based on patient's age to complete this topic Insurance [facility] Care Teams Talent Acquisition Lead Relationship Specialty Start Date End Date Merry Bell MD PCP - General INTERNAL MEDICINE 05/14/22
[2025-07-30 16:58] LABS: Estimated Glomerular Filt Rate 58
[2025-07-30 17:45] LABS: Hematocrit 49.0 % (42.0-52.0); Hemoglobin 16.3 g/dL (14.0-18.0); Mean Corpuscular HGB Conc 33.3 g/dl (32-36); Mean Corpuscular Hemoglobin 28.4 pg (26-34); Mean Corpuscular Volume 85.4 fl (80-100); Platelet Count Result 245 k/mm3 (150-375); Red Blood Count 5.74 M/mm3 (4.6-6.20); White Blood Count 10.7 K/mm3 (4.5-10.0)
[2025-07-30 17:56] LABS: Anion Gap 8 mmol/L (4-12); Blood Urea Nitrogen 19 mg/dL (9-20); Calcium 8.5 mg/dL (8.4-10.2); Carbon Dioxide 28 mmol/L (22-30); Chloride 99 mmol/L (98-107); Estimated Glomerular Filt Rate > 60; Glucose 97 mg/dL (65-110); Potassium 4.0 mmol/L (3.4-5.0); Sodium 135 mmol/L (137-145); Uric Acid 6.5 mg/dL (3.5-8.5)
== END 2025-07-30 16:20 | disposition home or self-care (01) ==
PROVIDERS: PCP Internal Medicine; Visit Provider Nurse Practitioner Family
DX: M79.89 Other specified soft tissue disorders (principal); M70.32 Other bursitis of elbow, left elbow
CPT/HCPCS: 36415; 73201; 80048; 84550; 85027; 85380; 93971; Q9967

== ENCOUNTER 2025-07-31 11:21 | Outpatient (CLI) | payer BC, SELFPAY | END 2025-07-31 11:22 | disposition home or self-care (01) | LOC: CHSLAB 11:23 | PROVIDERS: PCP Internal Medicine; Visit Provider Nurse Practitioner Family | DX: M71.129 Other infective bursitis, unspecified elbow (principal) | CPT/HCPCS: 87070; 87075 ==

== ENCOUNTER 2025-09-18 01:28 | Day surgery (SDC) | payer BC, SELFPAY ==
[2025-09-05 08:35] VITALS: BMI 31.1
--- OUTSIDE RECORDS SUMMARY | 2025-09-18 01:31 | XMS_ITS | Clinical Summary ---
Author Organization [facility] Address [address] [place] [address] Care Team Providers Care Manager Strategic Alliances Name Role Phone Merry Bell MD Primary Care Provider [phone] Allergies No known active allergies Medications aspirin EC 81 MG tablet Take 81 mg by mouth daily. Active amLODIPine 10 MG tablet Take 10 mg by mouth daily. Active metoprolol succinate ER 25 MG 24 hr tablet Take 25 mg by mouth daily. Active B Complex-C Tab tablet Take 1 tablet by mouth daily. 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 Not on file Not [...] of 2) 2024 COVID-19 Vaccine (1 - 2024-2 6 season) 2025 Influenza Adult (#1) 2025 Hepatitis A Vaccines Aged Out No long er eligible based on patient's age to complete this topic Meningococcal B Vaccine Aged Out No l onger eligible based on patient's age to complete this topic Meningococcal Vaccine Aged Out No jose miguel rodrigo eligible based on patient's age to complete this topic RSV Immunizations Under 20 Months Aged Out No longer eligible based on patient's age to complete this topic Insurance [employer] Care Teams Manager Strategic Alliances Relationship Specialty Start Date End Date Merry Bell MD PCP - General INTERNAL MEDICINE 05/14/22
[2025-09-18 10:09] VITALS: BP 145/63; PULSE 87; RESP 18; TEMP 36.5; O2SAT 98; BMI 30.7
[2025-09-18] MEDS: LACTATED RINGERS 1,000 ML 150 ML IV CONT (10:16)
--- NOTE | 2025-09-18 10:46 | PM.IMHP ---
H&P: HPI History of Present Illness Date/Time: 09/18/25 10:46 Chief Complaint: Screening for colorectal cancer Narrative: This is a 49-year-old man who presents for his 1st colonoscopy. He denies any hematochezia or melena. He denies family history of colon cancer. Review of Systems Review of Systems: All systems reviewed & are unremarkable except as noted in HPI and below Constitutional: Constitutional: Denies chills, Denies fever(s), Denies headache(s) and Denies weight loss Eyes: Eyes: Denies change in vision ENT: Denies dizziness, Denies headache(s), Denies neck mass and Denies throat swelling Cardiovascular: Cardiovascular: Denies chest pain, Denies lightheadedness and Denies dyspnea Respiratory: Respiratory: Denies cough, Denies dyspnea and Denies wheezing Gastrointestinal: Gastrointestinal: Denies abdominal pain, Denies change in bowel habits, Denies nausea and Denies vomiting Genitourinary: Genitourinary: Denies hematuria and Denies dysuria Musculoskeletal: Musculoskeletal: Reports as per HPI Integumentary/Breasts: Skin/Breast: Reports as per HPI Neurologic: Denies dizziness and Denies headache(s) Allergic/Immunologic: Allergic/Immunologic: Denies throat swelling and Denies wheezing PMFSH Past Medical History Medical History Dizziness, nonspecific High cholesterol Hypertension Surgical History Surgical History History of appendectomy History of inguinal hernia repair 03/09/22 Laparoscopic Bilateral inguinal hernia repair with mesh, da Lupe assisted Family History Family History Unknown Diabetes mellitus Hypertension Social History Social History Smoking status: Never smoker Tobacco type: pipe and cigars Alcohol intake: current Drinks per week: 2 Alcohol use details: socially Substance use: never Living arrangements: with family Spiritual care concerns: No Meds Home Medications and Allergies Home Medications ?Medication ?Instructions ?Recorded ?Confirmed ?Type amlodipine 10 mg tablet 10 mg PO DAILY 01/12/22 09/18/25 History ezetimibe 10 mg tablet 10 mg PO DAILY 09/05/25 09/18/25 History rosuvastatin 5 mg tablet 5 mg PO DAILY 09/05/25 09/18/25 History testosterone 50 mg/mL 50 mg IM USEASDIRECTD 09/05/25 09/18/25 History intramuscular solution Allergies Allergy/AdvReac Type Severity Reaction Status Date / Time No Known Allergies Allergy Verified 09/18/25 10:07 Vital Signs Vital Signs - 24 hr 09/18/25 10:09 Temperature 97.7 F Pulse Rate 87 Respiratory Rate 18 Blood Pressure 145/63 H Pulse Oximetry 98 Oxygen Delivery Room Air Exam Const: General: no acute distress and alert Orientation/consciousness: patient oriented x3 HENMT: Head: normocephalic and atraumatic Ears: hearing grossly normal bilaterally Face/Nose/Sinus: Normal nares present Mouth: Yes Normal oral and palatal mucosa present Eyes: Periorbital: periorbital findings normal Sclera: sclerae normal EOM: EOMs intact bilaterally Neck: Neck: normal visual inspection, no lymphadenopathy and trachea midline Chest: Chest palpation & inspection: normal inspection of the chest Resp: Effort & Inspection: normal respiratory effort Auscultation: clear to auscultation bilaterally Cardio: Jugular venous distension: no JVD Rate: regular rate Rhythm: regular rhythm Heart sounds: S1 normal heart sound present and S2 normal heart sound present Peripheral pulses: Peripheral pulses 2+ throughout GI: Inspection: normal to inspection GI Palp: Yes Soft to palpation, No Tenderness to palpation present (GI), No Guarding due to palpation present (GI) and No Rebound tenderness present Percussion: Yes normal to percussion Auscultation: normal bowel sounds : General: Yes no CVA tenderness Back/Spine/Pelvis: Back: no CVA tenderness Neuro: General: patient oriented x3, no focal motor deficits and CN's II-XI intact bilaterally Cognition (Neuro): normal cognition Speech: normal speech Motor exam (neuro): 5/5 motor strength present throughout Extrem: General: capillary refill normal and no clubbing, cyanosis or edema Assessment and Plan Assessment and plan (1) Screening for colorectal cancer: Code(s): Z12.11 - Encounter for screening for malignant neoplasm of colon; Z12.12 - Encounter for screening for malignant neoplasm of rectum Status: Acute Assessment and Plan: I have recommended colonoscopy. I have discussed the procedure, risks, benefits, and alternatives. Questions were answered. Patient is agreeable to proceed.
--- NOTE | 2025-09-18 11:05 | WPDANESEPPF ---
Anes - Initial Pre Proc Eval Procedure: Operation Date: 09/18/25 11:30 Proposed Procedures p Screening Colonoscopy - Power Funk DO Date/Time: 09/18/25 11:05 Surgeon: Power Funk DO Pre Op Diagnosis: screening for malignant neoplasm of colon Patient Data Age: 49 Gender: M Height: 1.83 m Weight: 102.9 kg Last Vital Signs Temp 36.5 C 09/18/25 10:09 Pulse 87 09/18/25 10:09 Resp 18 09/18/25 10:09 BP 145/63 H 09/18/25 10:09 Pulse Ox 98 09/18/25 10:09 O2 Del Method Room Air 09/18/25 10:09 Allergies Allergy/AdvReac Type Severity Reaction Status Date / Time No Known Allergies Allergy Verified 09/18/25 10:07 Home Medications ?Medication ?Instructions ?Recorded ?Confirmed ?Type amlodipine 10 mg tablet 10 mg PO DAILY 01/12/22 09/18/25 History ezetimibe 10 mg tablet 10 mg PO DAILY 09/05/25 09/18/25 History rosuvastatin 5 mg tablet 5 mg PO DAILY 09/05/25 09/18/25 History testosterone 50 mg/mL 50 mg IM USEASDIRECTD 09/05/25 09/18/25 History intramuscular solution Patient hx anesthesia problems: none Family hx anesthesia problems: none Results Review: All pre-operative results and documents have been reviewed as part of the pre-operative evaluation. [facility] Past Medical History Medical History Dizziness, nonspecific High cholesterol Hypertension Surgical History Surgical History History of inguinal hernia repair 03/09/22 Laparoscopic Bilateral inguinal hernia repair with mesh, da Lupe assisted History of appendectomy Family History Family History Unknown Diabetes mellitus Hypertension Social History Social History Smoking status: Never smoker Tobacco type: pipe and cigars Alcohol intake: current Drinks per week: 2 Alcohol use details: socially Substance use: never Living arrangements: with family Spiritual care concerns: No Anes - Eval Final PreProcedure Day of Procedure 09/18/25 11:05 Patient weight: overweight Heart: regular rate and rhythm Lungs: clear to auscultation Airway: Mallampati scale class II Neurological: alert and oriented Last oral intake: >/= 8 hours ASA classification: III Emergent: no Anesthetic plan: proceed Anesthesia type and monitoring: general GIVS and standard monitoring Results Review: All pre-operative results and documents have been reviewed as part of the pre-operative evaluation. Informed Consent: The patient's anesthetic plan and its attendant risks and benefits were discussed with the patient/family/POA. Questions were solicited and answers provided to the satisfaction of the patient/family/POA.
[2025-09-18 11:20] VITALS: BP 127/76; PULSE 90; RESP 18; O2SAT 98
[2025-09-18 11:30] VITALS: BP 133/91; PULSE 88; RESP 18; O2SAT 98
[2025-09-18 11:39] VITALS: BP 130/87; PULSE 82; RESP 19; O2SAT 98
== END 2025-09-18 11:43 | disposition home or self-care (01) ==
PROVIDERS: PCP Internal Medicine; Visit Provider Surgery
PROC: 0DJD8ZZ Inspection of Lower Intestinal Tract, Via Natural or Artificial Opening Endoscopic (ICD-10-PCS; CPT 45378; principal; 2025-09-18 11:30)
DX: Z12.11 Encounter for screening for malignant neoplasm of colon (principal); I10 Essential (primary) hypertension; E78.00 Pure hypercholesterolemia, unspecified; Z98.890 Other specified postprocedural states; Z87.891 Personal history of nicotine dependence
CPT/HCPCS: 45378; J2704; J7120